=== PATIENT | female | born 1960 | race Caucasian/White ===

== ENCOUNTER 2020-10-30 15:09 | Emergency (ER) | payer OTHER ==
[~2020-10-30 15:09] MED LIST: AUGMENTIN 875-1 EACH PO; BACTRIM DS TAB1 EACH PO; IBUPROFEN600 MG PO; KEFLEX500 MG PO; KLONOPIN TAB 00.5 MG PO; LOPRESSOR 50 MG50 MG PO; LORTAB 7.5-3251 EACH PO; ZANTAC150 MG PO; ZESTRIL 40 MG T40 MG PO
== END 2020-10-30 17:50 | disposition left against medical advice (07) ==
LOC: ER1 15:09
DX: S20.211A Contusion of right front wall of thorax, initial encounter (principal); S00.81XA Abrasion of other part of head, initial encounter; I10 Essential (primary) hypertension; M06.9 Rheumatoid arthritis, unspecified; M54.6 Pain in thoracic spine; W01.0XXA Fall on same level from slipping, tripping and stumbling without subsequent striking against object, initial encounter; Y92.009 Unspecified place in unspecified non-institutional (private) residence as the place of occurrence of the external cause
CPT/HCPCS: 71111; 99283

== ENCOUNTER → 2021-01-24 | Outpatient (CLI) | payer OTHER | LOC: KOH-I 08:00 | DX: M47.812 Spondylosis without myelopathy or radiculopathy, cervical region (principal); M43.12 Spondylolisthesis, cervical region; M50.31 Other cervical disc degeneration, high cervical region | CPT/HCPCS: 72141 ==